=== PATIENT | male | born 1990 | race Caucasian/White ===

== ENCOUNTER 2016-06-02 11:37 | Inpatient (IN) | payer MEDICARE, OTHER, MEDICAID ==
[2016-06-02 12:17] LABS: Hematocrit 51 % (42-52); Hemoglobin 16.8 g/dl (14.0-18.0); Mean Corpuscular HGB Conc 33 g/dl (31-36); Mean Corpuscular Hemoglobin 28 pg (27-31); Mean Corpuscular Volume 86 fL (80-94); Mean Platelet Volume 9 um3 (7.4-10.4); Red Blood Count 5.96 10^6/ul (4.0-5.4); Red Cell Distribution Width 15 % (10.5-15); Urine Bilirubin Negative (Negative); Urine Glucose Negative (Negative); Urine Nitrite Negative (Negative); White Blood Count 12.5 10^3/ul (3.5-10.8)
[2016-06-02 12:26] LABS: ALT 32 U/L (7-52); AST 25 U/L (13-39); Albumin 4.8 g/dL (3.2-5.2); Alkaline Phosphatase 85 U/L (34-104); Anion Gap 9 mmol/L (2-11); BUN/Creatinine Ratio 11.6 (8-20); Blood Urea Nitrogen 13 mg/dL (6-24); CO2 Carbon Dioxide 29 mmol/L (22-32); Calcium 10.1 mg/dL (8.6-10.3); Chloride 99 mmol/L (101-111); EGFR African American 104.5 (>60); EGFR Non-African American 81.2 (>60); Globulin 3.3 g/dL (2-4); Glucose 96 mg/dL (70-100); Potassium 3.8 mmol/L (3.5-5.0); Sodium 137 mmol/L (133-145); Total Protein 8.1 g/dL (6.4-8.9)
[2016-06-02 12:27] LABS: Benzodiazepine Urine Screen None Detected (None Detect)
[2016-06-02] MEDS ORDERED: LORazepam TAB(*) 1 MG PO ONE (12:51)
[2016-06-02 12:53] LABS: Acetaminophen < 15 mcg/mL; Alcohol < 10 mg/dL (<10); Salicylate < 2.50 mg/dL (<30)
[2016-06-02 13:01] LABS: TSH (Thyroid Stimulating Horm) 1.05 mcIU/mL (0.34-5.60)
[2016-06-02] MEDS ORDERED: Al Hydrox/Mg Hydrox/Simet LIQ* 30 ML UDC PO PRN (13:55)
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
[2016-06-02] MEDS: Haloperidol TAB* 5 MG PO PRN (17:19)
[2016-06-02] MEDS: OLANzapine TAB* 10 MG PO SCH (20:31)
[2016-06-02] MEDS: cloNIDine TAB* 0.1 MG PO SCH (20:31)
[2016-06-03] MEDS: cloNIDine TAB* 0.1 MG PO SCH ×2 (08:21→21:36)
[2016-06-03] MEDS: Vitamin THERAPEUTIC TAB PO SCH (08:21)
[2016-06-03] MEDS: PARoxetine HCL TAB* 20 MG PO SCH (08:21)
[2016-06-03] MEDS: LORazepam TAB(*) 1 MG PO PRN (10:10)
--- NOTE | 2016-06-03 11:31 | PN ---
MHU: Group Therapy Note - Service Type Service Type: 84777 Group Psychotherapy - Cognitive Behavioral Group Therapy ( CBT):Patient was attentive and participatory in CBT programming this morning, and remained in good behavioral control. Patient expressed positive insights regarding relevant treatment interventions and goals. Manolo initially presented as somewhat agitated, but responded to group discussion positively and was attentive to peer and staff conversation.
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
[2016-06-03] MEDS: OLANzapine TAB* 10 MG PO SCH (21:36)
[2016-06-04] MEDS: cloNIDine TAB* 0.1 MG PO SCH ×2 (09:05→20:07)
[2016-06-04] MEDS: PARoxetine HCL TAB* 20 MG PO SCH (09:05)
[2016-06-04] MEDS: Vitamin THERAPEUTIC TAB PO SCH (09:05)
[2016-06-04] MEDS: Haloperidol TAB* 5 MG PO PRN (09:36)
[2016-06-04] MEDS: LORazepam TAB(*) 1 MG PO PRN (09:37)
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
[2016-06-04] MEDS: OLANzapine TAB* 10 MG PO SCH (20:07)
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
[2016-06-05] MEDS: cloNIDine TAB* 0.1 MG PO SCH ×2 (08:36→20:24)
[2016-06-05] MEDS: PARoxetine HCL TAB* 20 MG PO SCH (08:37)
[2016-06-05] MEDS: Vitamin THERAPEUTIC TAB PO SCH (08:37)
[2016-06-05] MEDS: Haloperidol TAB* 5 MG PO PRN ×2 (09:52→19:05)
[2016-06-05] MEDS: LORazepam TAB(*) 1 MG PO PRN ×2 (09:52→19:05)
--- NOTE | 2016-06-05 12:02 | PN ---
MHU: Group Therapy Note - Service Type Service Type: [id number] Group Psychotherapy - Cognitive Behavioral Group Therapy ( CBT):Patient attended CBT programming this morning and presented with flat affect that did not vary with discussion. Although responsive to direct prompts to respond to questions, patient did not engage in spontaneous conversation.
[2016-06-05] MEDS: OLANzapine TAB* 10 MG PO SCH (20:24)
[2016-06-06] MEDS: PARoxetine HCL TAB* 20 MG PO SCH (09:44)
[2016-06-06] MEDS: Vitamin THERAPEUTIC TAB PO SCH (09:44)
[2016-06-06] MEDS: cloNIDine TAB* 0.1 MG PO SCH ×2 (09:44→20:12)
[2016-06-06] MEDS: LORazepam TAB(*) 1 MG PO PRN (10:51)
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
[2016-06-06] MEDS ORDERED: Ziprasidone * 20 MG CAP (generic Geodon) PO ONE (11:14)
[2016-06-06] MEDS: Ziprasidone * 20 MG CAP (generic Geodon) PO SCH ×3 (11:15→20:14)
[2016-06-06] MEDS: OLANzapine TAB* 10 MG PO SCH (20:13)
[2016-06-07] MEDS: PARoxetine HCL TAB* 20 MG PO SCH (08:24)
[2016-06-07] MEDS: Vitamin THERAPEUTIC TAB PO SCH (08:24)
[2016-06-07] MEDS: cloNIDine TAB* 0.1 MG PO SCH ×2 (08:24→19:56)
[2016-06-07] MEDS: Ziprasidone * 20 MG CAP (generic Geodon) PO SCH ×2 (08:25→19:59)
[2016-06-07] MEDS ORDERED: diPHENhydraMINE PO* 50 MG PO PRN (10:55)
[2016-06-07] MEDS: LORazepam TAB(*) 1 MG PO PRN (10:58)
[2016-06-07] MEDS ORDERED: diPHENhydraMINE PO* 50 MG ONE (11:02)
[2016-06-07] MEDS ORDERED: Influenza VAC *QUAD* 2016-17* 0.5 ML SYRINGE IM ONE (15:00)
[2016-06-07] MEDS: OLANzapine TAB* 10 MG PO SCH (19:56)
[2016-06-08] MEDS: cloNIDine TAB* 0.1 MG PO SCH ×2 (08:06→20:00)
[2016-06-08] MEDS: Ziprasidone * 20 MG CAP (generic Geodon) PO SCH ×2 (08:06→20:00)
[2016-06-08] MEDS: PARoxetine HCL TAB* 20 MG PO SCH (08:07)
[2016-06-08] MEDS: Vitamin THERAPEUTIC TAB PO SCH (08:07)
--- NOTE | 2016-06-08 12:24 | PN ---
Subjective - Subjective Service Type: 43639 Hosp care 15 min low complexity Subjective: Pawel reports full remission of psychotic symptoms today with 'content' mood and no other psychiatric or medical complaints. He had complained over the weekend of some dystonia after starting Geodon, but denies any today. He requests time in the comfort room. Noted to be withdrawn and tearful for unknown reason in group today. Objective - Appearance Appearance: Healthy Appearing Dysmorphic Features: No Hygiene: Normal Grooming: Well Kept - Behavior Psychomotor Activities: Normal Exhibits Abnormal Movement: No - Attitude and Relatedness Attitude and Relatedness: Cooperative Eye Contact: Fair - Speech Quality: Unpressured Latencies: Normal Quantity: Appropriate - Mood Patient's Decription of Mood: "Content" - Affect Observed Affect: Fair Affect Consistent with: Euthymia - Thought Process Patient's Thought Process: Coherent, Goal Directed Thought Content: No Passive Wish, No Suicidal Planning, No Homicidal Ideation, No Paranoid Ideation - Sensorium Experiencing Hallucinations: No, Sensorium is Clear Type of Hallucinations: Visual: No, Auditory: No, Command: No - Level of Consciousness Level of Consciousness: Alert Orientation: Yes Intact, Yes Orientated to Time, Yes Orientated to Place, Yes Orientated to Person - Impulse Control Impulse Control: Intact - Insight and Judgement Insight and Judgement: Poor - Group Participation Particating in Group Activities: Yes - Medication Management Medication Management Adherence: Yes Assessment - Assessment Merits Inpatient Hospitalization: For Stabilization, For Ongoing Evaluation, For Discharge Planning, Pending Safe DC Plan Inpatient DSM-IV Dx: Schizophrenia Clinical Impression: Mr. Galvez is being re-admitted to the unit due to recurrence of psychosis similar to what prompted his admission on 05/01/2016. He reports that he has been compliant with medications. We will be gathering collateral reports, particularly from his father and from the [facility] once we document his permission through signed HIPAA releases. We will be encouraging him to make use of the therapeutic milieu and groups, and in fact I did interview him on the day of admission after asking him to exit a group to do so. We will be monitoring his mental status and safety. We will continue for now the Zyprexa that he has been on, but will be discussing with him the possibility of a medication change, perhaps to Clozaril, which may be more effective against psychosis. Aftercare will most likely be return to care at the [facility]. 06.04.16 Pawel remains paranoid and delusional, but cooperative and able to tolerate hearing objective assessment of his status as psychotic with delusions. He is open to the possibility of a medication change to either a long-acting injectable like Invega Sustenna, or Clozaril. We reviewed potential side-effects of Clozaril, including but not limited to bone marrow suppression, sialorrhea, fatigue, and enuresis. 06.05.16 Remains disorganized, paranoid, delusional, pacing. Med and group compliant. Has not yet given decision re starting Clozaril. No return call yesterday from Dr Cook. 06.06.16 Pawel wants to switch to Geodon, which he says has worked well for him in the past, from Zyprexa. He does not want to start Clozaril at this time. He gives equivocal report of active SI on the unit, and expresses feeling terrible at being readmitted for psychiatric care. He reports some improvement of HI/PI, but I am uncertain of the reliability of this report today. 06.08.16 Pawel reports good response to Geodon today, with reported remission of psychotic symptoms, but I am unsure of the reliability of this report, as this is a remarkably rapid recovery. Will continue Geodon and continue to monitor. Plan - Plan Treatment Plan: Name: PAWEL GALVEZ Birthdate: 1990 [id number] Continue Paxil 20 mg daily, Geodon 80 mg bid. Monitor MS and safety, with focus on objective signs of remission of psychosis, ie increased engagement socially, decreased signs of possible response to internal stimuli, smoother flow of logical thought. Encourage groups and milieu. Medications: Current Medications Acetaminophen (Tylenol Tab*) 650 mg PO Q4H PRN PRN Reason: for pain; or Temp >101 F Al Hydrox/Mg Hydrox/Simethicone (Maalox Plus*) 30 ml PO Q4H PRN PRN Reason: INDIGESTION Clonidine HCl (Catapres Tab*) 0.1 mg PO BID [facility] Last Admin: 06/08/16 08:06 Dose: 0.1 mg Diphenhydramine HCl (Benadryl Po*) 50 mg PO Q4H PRN PRN Reason: DISCOMFORT Haloperidol (Haldol Tab*) 5 mg PO Q6H PRN PRN Reason: AGITATION/ANXIETY/INSOMNIA Last Admin: 06/05/16 19:05 Dose: 5 mg Lorazepam (Ativan Tab(*)) 2 mg PO Q6H PRN PRN Reason: AGITATION/ANXIETY/INSOMNIA Last Admin: 06/07/16 10:58 Dose: 2 mg Multivitamins (Theragran Tab*) 1 tab PO DAILY [facility] Last Admin: 06/08/16 08:07 Dose: 1 tab Olanzapine (Zyprexa Tab*) 10 mg PO BEDTIME [facility] Last Admin: 06/07/16 19:56 Dose: 10 mg Paroxetine HCl (Paxil Tab*) 20 mg PO DAILY [facility] Last Admin: 06/08/16 08:07 Dose: 20 mg Ziprasidone (Geodon (Generic) *) 80 mg PO BID [facility] Last Admin: 06/08/16 08:06 Dose: 80 mg - Discharge Plan Discharge Plan: Outpatient Follow Up Outpatient Program: [facility]
[2016-06-08] MEDS: OLANzapine TAB* 10 MG PO SCH (20:00)
[2016-06-09] MEDS: PARoxetine HCL TAB* 20 MG PO SCH (08:24)
[2016-06-09] MEDS: Ziprasidone * 20 MG CAP (generic Geodon) PO SCH ×2 (08:25→20:12)
[2016-06-09] MEDS: cloNIDine TAB* 0.1 MG PO SCH ×2 (08:25→20:11)
[2016-06-09] MEDS: Vitamin THERAPEUTIC TAB PO SCH (08:25)
--- NOTE | 2016-06-09 11:49 | PN ---
MHU: Group Therapy Note - Service Type Service Type: 75649 Group Psychotherapy - Cognitive Behavioral Group Therapy ( CBT):Patient was attentive and participatory in CBT programming this morning, and remained in good behavioral control. Patient expressed positive insights regarding relevant treatment interventions and goals.
[2016-06-09 14:24] LABS: BUN/Creatinine Ratio 13.2 (8-20); Calcium 9.4 mg/dL (8.6-10.3); EGFR African American 95.6 (>60); EGFR Non-African American 74.3 (>60); Potassium 3.7 mmol/L (3.5-5.0)
[2016-06-09 17:04] LABS: Hematocrit 45 % (42-52); Hemoglobin 14.7 g/dl (14.0-18.0); Mean Corpuscular HGB Conc 33 g/dl (31-36); Mean Corpuscular Hemoglobin 28 pg (27-31); Mean Corpuscular Volume 86 fL (80-94); Mean Platelet Volume 9 um3 (7.4-10.4); Red Blood Count 5.22 10^6/ul (4.0-5.4); Red Cell Distribution Width 15 % (10.5-15); White Blood Count 10.3 10^3/ul (3.5-10.8)
[2016-06-09] MEDS: OLANzapine TAB* 10 MG PO SCH (20:11)
[2016-06-10] MEDS: Ziprasidone * 20 MG CAP (generic Geodon) PO SCH ×2 (08:10→20:16)
[2016-06-10] MEDS: cloNIDine TAB* 0.1 MG PO SCH ×2 (08:11→20:15)
[2016-06-10] MEDS: Vitamin THERAPEUTIC TAB PO SCH (08:11)
[2016-06-10] MEDS: PARoxetine HCL TAB* 20 MG PO SCH (08:11)
--- NOTE | 2016-06-10 13:09 | PN ---
MHU: Group Therapy Note - Service Type Service Type: [id number] Group Psychotherapy - Cognitive Behavioral Group Therapy ( CBT):Patient was attentive and participatory in CBT programming this morning, and remained in good behavioral control. Patient expressed positive insights regarding relevant treatment interventions and goals.
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
[2016-06-10] MEDS ORDERED: CloZAPine TAB* 25 MG TAB PO SCH (15:00)
[2016-06-10] MEDS: Acetaminophen TAB* 325 MG PO PRN (15:49)
[2016-06-10] MEDS ORDERED: guaiFENesin LIQ* 100 MG/5 ML UDC PO PRN (16:00)
[2016-06-10] MEDS: CloZAPine TAB* 25 MG TAB PO SCH (20:15)
[2016-06-10] MEDS: OLANzapine TAB* 10 MG PO SCH (20:16)
[2016-06-11] MEDS: Vitamin THERAPEUTIC TAB PO SCH (08:25)
[2016-06-11] MEDS: PARoxetine HCL TAB* 20 MG PO SCH (08:25)
[2016-06-11] MEDS: cloNIDine TAB* 0.1 MG PO SCH ×2 (08:25→20:24)
[2016-06-11] MEDS: Ziprasidone * 20 MG CAP (generic Geodon) PO SCH ×2 (08:26→20:24)
[2016-06-11] MEDS: CloZAPine TAB* 25 MG TAB PO SCH (20:24)
[2016-06-11] MEDS: OLANzapine TAB* 10 MG PO SCH (20:24)
[2016-06-12] MEDS: cloNIDine TAB* 0.1 MG PO SCH ×2 (07:48→20:01)
[2016-06-12] MEDS: Vitamin THERAPEUTIC TAB PO SCH (07:48)
[2016-06-12] MEDS: PARoxetine HCL TAB* 20 MG PO SCH (07:48)
[2016-06-12] MEDS: Ziprasidone * 20 MG CAP (generic Geodon) PO SCH ×2 (07:48→20:01)
--- NOTE | 2016-06-12 09:11 | PN ---
Subjective - Subjective Service Type: 04424 Hosp care 15 min low complexity Subjective: Pawel reports he is still having difficulties with URI, but is feeling a little better. He says he is free of psychosis with 'tired' mood. Objective - Appearance Appearance: Well Developed/Nourished Dysmorphic Features: No Hygiene: Normal Grooming: Disheveled - Behavior Psychomotor Activities: Normal Exhibits Abnormal Movement: No - Attitude and Relatedness Attitude and Relatedness: Cooperative Eye Contact: Good - Speech Quality: Unpressured Latencies: Normal Quantity: Appropriate - Mood Patient's Decription of Mood: "Tired" - Affect Observed Affect: Depressed Affect Consistent with: Dysphoria - Thought Process Patient's Thought Process: Coherent, Goal Directed Thought Content: No Passive Wish, No Suicidal Planning, No Homicidal Ideation, No Paranoid Ideation - Sensorium Experiencing Hallucinations: No, Sensorium is Clear Type of Hallucinations: Visual: No, Auditory: No, Command: No - Level of Consciousness Level of Consciousness: Alert Orientation: Yes Intact, Yes Orientated to Time, Yes Orientated to Place, Yes Orientated to Person - Impulse Control Impulse Control: Intact - Insight and Judgement Insight and Judgement: Poor - Group Participation Particating in Group Activities: Yes - Medication Management Medication Management Adherence: Yes Assessment - Assessment Merits Inpatient Hospitalization: For Immediate Safety, For Stabilization, For Discharge Planning Inpatient DSM-IV Dx: Schizophrenia Clinical Impression: Mr. Galvez is being re-admitted to the unit due to recurrence of psychosis similar to what prompted his admission on 05/01/2016. He reports that he has been compliant with medications. We will be gathering collateral reports, particularly from his father and from the [facility] once we document his permission through signed HIPAA releases. We will be encouraging him to make use of the therapeutic milieu and groups, and in fact I did interview him on the day of admission after asking him to exit a group to do so. We will be monitoring his mental status and safety. We will continue for now the Zyprexa that he has been on, but will be discussing with him the possibility of a medication change, perhaps to Clozaril, which may be more effective against psychosis. Aftercare will most likely be return to care at the [facility]. 06.04.16 Pawel remains paranoid and delusional, but cooperative and able to tolerate hearing objective assessment of his status as psychotic with delusions. He is open to the possibility of a medication change to either a long-acting injectable like Invega Sustenna, or Clozaril. We reviewed potential side-effects of Clozaril, including but not limited to bone marrow suppression, sialorrhea, fatigue, and enuresis. 2.10.17 Remains disorganized, paranoid, delusional, pacing. Med and group compliant. Has not yet given decision re starting Clozaril. No return call yesterday from Dr Cook. 2.17 Pawel wants to switch to Geodon, which he says has worked well for him in the past, from Zyprexa. He does not want to start Clozaril at this time. He gives equivocal report of active SI on the unit, and expresses feeling terrible at being readmitted for psychiatric care. He reports some improvement of HI/PI, but I am uncertain of the reliability of this report today. 2.17 Pawel reports good response to Geodon today, with reported remission of psychotic symptoms, but I am unsure of the reliability of this report, as this is a remarkably rapid recovery. Will continue Geodon and continue to monitor. 2.15.17 At yesterday's family meeting, Pawel agreed to a trial of Clozaril, having voiced understanding of potential side effects including but not limited to bone marrow suppression, sialorrhea, sedation, weight gain, increased risk of onset of type 2 diabetes, and requirement for weekly blood draws to check ANC. He remains paranoid, delusional, disheveled, pacing, marginally engaged. 2..17 Pawel reports tired mood in context of URI. Also reports remission of psychotic symptoms. Med, meal, group compliant. Plan - Plan Treatment Plan: Name: PAWEL GALVEZ Birthdate: 1990 [id number] Continue Paxil 20 mg daily. Replace Geodon with Clozaril on cross-taper schedule over next week. Monitor MS and safety, with focus on objective signs of remission of psychosis, ie increased engagement socially, decreased signs of possible response to internal stimuli, smoother flow of logical thought. Encourage groups and milieu. Continued Medication Management: Different Medication Medications: Current Medications Acetaminophen (Tylenol Tab*) 650 mg PO Q4H PRN PRN Reason: for pain; or Temp >101 F Last Admin: 06/10/16 15:49 Dose: 650 mg Al Hydrox/Mg Hydrox/Simethicone (Maalox Plus*) 30 ml PO Q4H PRN PRN Reason: INDIGESTION Clonidine HCl (Catapres Tab*) 0.1 mg PO BID [facility] Last Admin: 06/12/16 07:48 Dose: 0.1 mg Clozapine (Clozapine Tab*) 12.5 mg PO BEDTIME [facility] Last Admin: 06/11/16 20:24 Dose: 12.5 mg Diphenhydramine HCl (Benadryl Po*) 50 mg PO Q4H PRN PRN Reason: DISCOMFORT Guaifenesin (Robitussin*) 5 ml PO Q4H PRN PRN Reason: COUGH Last Admin: 06/10/16 16:21 Dose: 5 ml Haloperidol (Haldol Tab*) 5 mg PO Q6H PRN PRN Reason: AGITATION/ANXIETY/INSOMNIA Last Admin: 06/05/16 19:05 Dose: 5 mg Lorazepam (Ativan Tab(*)) 2 mg PO Q6H PRN PRN Reason: AGITATION/ANXIETY/INSOMNIA Last Admin: 06/07/16 10:58 Dose: 2 mg Multivitamins (Theragran Tab*) 1 tab PO DAILY [facility] Last Admin: 06/12/16 07:48 Dose: 1 tab Olanzapine (Zyprexa Tab*) 10 mg PO BEDTIME [facility] Last Admin: 06/11/16 20:24 Dose: 10 mg Paroxetine HCl (Paxil Tab*) 20 mg PO DAILY [facility] Last Admin: 06/12/16 07:48 Dose: 20 mg Ziprasidone (Geodon (Generic) *) 80 mg PO BID [facility] Last Admin: 06/12/16 07:48 Dose: 80 mg - Discharge Plan Discharge Plan: Outpatient Follow Up Outpatient Program: [facility]
[2016-06-12] MEDS: CloZAPine TAB* 25 MG TAB PO SCH (20:03)
[2016-06-13] MEDS: CloZAPine TAB* 25 MG TAB PO SCH ×2 (08:02→20:04)
[2016-06-13] MEDS: Ziprasidone * 20 MG CAP (generic Geodon) PO SCH ×2 (08:02→20:05)
[2016-06-13] MEDS: cloNIDine TAB* 0.1 MG PO SCH ×2 (08:02→20:04)
[2016-06-13] MEDS: Vitamin THERAPEUTIC TAB PO SCH (08:02)
[2016-06-13] MEDS: PARoxetine HCL TAB* 20 MG PO SCH (08:02)
[2016-06-14] MEDS: PARoxetine HCL TAB* 20 MG PO SCH (08:05)
[2016-06-14] MEDS: CloZAPine TAB* 25 MG TAB PO SCH ×2 (08:05→20:04)
[2016-06-14] MEDS: cloNIDine TAB* 0.1 MG PO SCH ×2 (08:05→20:04)
[2016-06-14] MEDS: Vitamin THERAPEUTIC TAB PO SCH (08:05)
[2016-06-14] MEDS: Ziprasidone * 20 MG CAP (generic Geodon) PO SCH ×2 (08:06→20:04)
[2016-06-14] MEDS: Acetaminophen TAB* 325 MG PO PRN (08:48)
--- NOTE | 2016-06-14 19:41 | PN ---
Progress Note - Progress Note Note: Patient told there are two patients on the unit (did not disclose their names) who have tested positive for Influenza A and I am recommending taking Tamiflu as a prophylactic measure. I made it clear this was optional. She agreed to the treatment after hearing of the indications, risks, benefits and alternatives.
[2016-06-15] MEDS: Oseltamivir CAP* 75 MG PO SCH (07:32)
[2016-06-15] MEDS: CloZAPine TAB* 25 MG TAB PO SCH ×2 (07:32→20:01)
[2016-06-15] MEDS: Vitamin THERAPEUTIC TAB PO SCH (07:32)
[2016-06-15] MEDS: cloNIDine TAB* 0.1 MG PO SCH ×2 (07:32→20:00)
[2016-06-15] MEDS: PARoxetine HCL TAB* 20 MG PO SCH (07:32)
[2016-06-15] MEDS: Ziprasidone * 20 MG CAP (generic Geodon) PO SCH ×2 (07:33→19:59)
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
[2016-06-16 08:00] LABS: Hematocrit 47 % (42-52); Hemoglobin 15.2 g/dl (14.0-18.0); Mean Corpuscular HGB Conc 33 g/dl (31-36); Mean Corpuscular Hemoglobin 28 pg (27-31); Mean Corpuscular Volume 87 fL (80-94); Mean Platelet Volume 9 um3 (7.4-10.4); Red Blood Count 5.38 10^6/ul (4.0-5.4); Red Cell Distribution Width 15 % (10.5-15); White Blood Count 10.9 10^3/ul (3.5-10.8)
[2016-06-16] MEDS: Vitamin THERAPEUTIC TAB PO SCH (10:04)
[2016-06-16] MEDS: Oseltamivir CAP* 75 MG PO SCH (10:04)
[2016-06-16] MEDS: cloNIDine TAB* 0.1 MG PO SCH ×2 (10:04→20:48)
[2016-06-16] MEDS: Ziprasidone * 20 MG CAP (generic Geodon) PO SCH ×2 (10:04→20:48)
[2016-06-16] MEDS: PARoxetine HCL TAB* 20 MG PO SCH (10:05)
[2016-06-16] MEDS: CloZAPine TAB* 25 MG TAB PO SCH ×2 (10:05→20:47)
--- NOTE | 2016-06-16 11:09 | PN ---
MHU: Group Therapy Note - Service Type Service Type: 84415 Group Psychotherapy - Cognitive Behavioral Group Therapy ( CBT):Patient was attentive and participatory in CBT programming this morning, and remained in good behavioral control. Patient expressed positive insights regarding relevant treatment interventions and goals.
[2016-06-17] MEDS: CloZAPine TAB* 25 MG TAB PO SCH ×2 (08:03→20:03)
[2016-06-17] MEDS: Oseltamivir CAP* 75 MG PO SCH (08:04)
[2016-06-17] MEDS: cloNIDine TAB* 0.1 MG PO SCH ×2 (08:04→20:03)
[2016-06-17] MEDS: Ziprasidone * 20 MG CAP (generic Geodon) PO SCH ×2 (08:04→20:02)
[2016-06-17] MEDS: Vitamin THERAPEUTIC TAB PO SCH (08:04)
[2016-06-17] MEDS: PARoxetine HCL TAB* 20 MG PO SCH (08:05)
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
[2016-06-18] MEDS: Vitamin THERAPEUTIC TAB PO SCH (07:58)
[2016-06-18] MEDS: Oseltamivir CAP* 75 MG PO SCH (07:58)
[2016-06-18] MEDS: cloNIDine TAB* 0.1 MG PO SCH ×2 (07:58→20:02)
[2016-06-18] MEDS: CloZAPine TAB* 25 MG TAB PO SCH ×2 (07:58→20:02)
[2016-06-18] MEDS: Ziprasidone * 20 MG CAP (generic Geodon) PO SCH ×2 (07:59→20:02)
[2016-06-18] MEDS: PARoxetine HCL TAB* 20 MG PO SCH (08:00)
[2016-06-19] MEDS: CloZAPine TAB* 25 MG TAB PO SCH ×2 (08:14→20:02)
[2016-06-19] MEDS: cloNIDine TAB* 0.1 MG PO SCH ×2 (08:14→20:02)
[2016-06-19] MEDS: Ziprasidone * 20 MG CAP (generic Geodon) PO SCH ×2 (08:15→20:02)
[2016-06-19] MEDS: PARoxetine HCL TAB* 20 MG PO SCH (08:16)
[2016-06-19] MEDS: Vitamin THERAPEUTIC TAB PO SCH (08:16)
[2016-06-19] MEDS: Oseltamivir CAP* 75 MG PO SCH (08:16)
--- NOTE | 2016-06-19 16:44 | PN ---
Subjective - Subjective Service Type: 90127 Hosp care 15 min low complexity Subjective: Pawel reports he has had full remission of any dangerous intent or plan and any psychotic symptoms. He is asking for discharge. He is pleasant and collaborative. Objective - Appearance Appearance: Healthy Appearing Dysmorphic Features: No Hygiene: Normal Grooming: Fairly Well Kept - Behavior Psychomotor Activities: Normal Exhibits Abnormal Movement: No - Attitude and Relatedness Attitude and Relatedness: Cooperative Eye Contact: Fair - Speech Quality: Unpressured Latencies: Normal Quantity: Appropriate - Mood Patient's Decription of Mood: "Better" - Affect Observed Affect: Fair Affect Consistent with: Euthymia - Thought Process Patient's Thought Process: Coherent, Goal Directed Thought Content: No Passive Wish, No Suicidal Planning, No Homicidal Ideation, No Paranoid Ideation - Sensorium Experiencing Hallucinations: No, Sensorium is Clear Type of Hallucinations: Visual: No, Auditory: No, Command: No - Level of Consciousness Level of Consciousness: Alert Orientation: Yes Intact, Yes Orientated to Time, Yes Orientated to Place, Yes Orientated to Person - Impulse Control Impulse Control: Intact - Insight and Judgement Insight and Judgement: Fair - Group Participation Particating in Group Activities: Yes - Medication Management Medication Management Adherence: Yes Assessment - Assessment Merits Inpatient Hospitalization: Consolidate Improvements, For Discharge Planning Inpatient DSM-IV Dx: Schizophrenia Clinical Impression: Mr. Galvez is being re-admitted to the unit due to recurrence of psychosis similar to what prompted his admission on 05/01/2016. He reports that he has been compliant with medications. We will be gathering collateral reports, particularly from his father and from the [facility] once we document his permission through signed HIPAA releases. We will be encouraging him to make use of the therapeutic milieu and groups, and in fact I did interview him on the day of admission after asking him to exit a group to do so. We will be monitoring his mental status and safety. We will continue for now the Zyprexa that he has been on, but will be discussing with him the possibility of a medication change, perhaps to Clozaril, which may be more effective against psychosis. Aftercare will most likely be return to care at the [facility]. 06.04.16 Pawel remains paranoid and delusional, but cooperative and able to tolerate hearing objective assessment of his status as psychotic with delusions. He is open to the possibility of a medication change to either a long-acting injectable like Invega Sustenna, or Clozaril. We reviewed potential side-effects of Clozaril, including but not limited to bone marrow suppression, sialorrhea, fatigue, and enuresis. 2.10.17 Remains disorganized, paranoid, delusional, pacing. Med and group compliant. Has not yet given decision re starting Clozaril. No return call yesterday from Dr Cook. 2.11.17 Pawel wants to switch to Geodon, which he says has worked well for him in the past, from Zyprexa. He does not want to start Clozaril at this time. He gives equivocal report of active SI on the unit, and expresses feeling terrible at being readmitted for psychiatric care. He reports some improvement of HI/PI, but I am uncertain of the reliability of this report today. 2.13.17 Pawel reports good response to Geodon today, with reported remission of psychotic symptoms, but I am unsure of the reliability of this report, as this is a remarkably rapid recovery. Will continue Geodon and continue to monitor. 2.15.17 At yesterday's family meeting, Pawel agreed to a trial of Clozaril, having voiced understanding of potential side effects including but not limited to bone marrow suppression, sialorrhea, sedation, weight gain, increased risk of onset of type 2 diabetes, and requirement for weekly blood draws to check ANC. He remains paranoid, delusional, disheveled, pacing, marginally engaged. 2.17.17 Pawel reports tired mood in context of URI. Also reports remission of psychotic symptoms. Med, meal, group compliant. 2.22.17 Pawel reports improved mood and insight into prior psychotic state, which he says is resolving or resolved. 2.24.17 Pawel is markedly improved and should be ready for discharge early next week. Plan - Plan Treatment Plan: Name: PAWEL GALVEZ Birthdate: 1990 [id number] Continue Paxil 20 mg daily. Continue Clozaril increments over next week targeting 200+ mg dose. Monitor MS and safety, with focus on objective signs of remission of psychosis, ie increased engagement socially, decreased signs of possible response to internal stimuli, smoother flow of logical thought. Encourage groups and milieu. Medications: Current Medications Acetaminophen (Tylenol Tab*) 650 mg PO Q4H PRN PRN Reason: for pain; or Temp >101 F Last Admin: 06/14/16 08:48 Dose: 650 mg Al Hydrox/Mg Hydrox/Simethicone (Maalox Plus*) 30 ml PO Q4H PRN PRN Reason: INDIGESTION Clonidine HCl (Catapres Tab*) 0.1 mg PO BID [facility] Last Admin: 06/19/16 08:14 Dose: 0.1 mg Diphenhydramine HCl (Benadryl Po*) 50 mg PO Q4H PRN PRN Reason: DISCOMFORT Guaifenesin (Robitussin*) 5 ml PO Q4H PRN PRN Reason: COUGH Last Admin: 06/10/16 16:21 Dose: 5 ml Haloperidol (Haldol Tab*) 5 mg PO Q6H PRN PRN Reason: AGITATION/ANXIETY/INSOMNIA Last Admin: 06/05/16 19:05 Dose: 5 mg Lorazepam (Ativan Tab(*)) 2 mg PO Q6H PRN PRN Reason: AGITATION/ANXIETY/INSOMNIA Last Admin: 06/07/16 10:58 Dose: 2 mg Multivitamins (Theragran Tab*) 1 tab PO DAILY [facility] Last Admin: 06/19/16 08:16 Dose: 1 tab Oseltamivir Phosphate (Tamiflu Cap*) 75 mg PO DAILY [facility] Stop: 06/24/16 09:01 Last Admin: 06/19/16 08:16 Dose: 75 mg Paroxetine HCl (Paxil Tab*) 20 mg PO DAILY [facility] Last Admin: 06/19/16 08:16 Dose: 20 mg Ziprasidone (Geodon (Generic) *) 80 mg PO BID [facility] PRN Reason: Taper Stop: 06/23/16 16:08 Last Admin: 06/19/16 08:15 Dose: 80 mg - Discharge Plan Discharge Plan: Outpatient Follow Up Outpatient Program: [facility]
[2016-06-20] MEDS: CloZAPine TAB* 25 MG TAB PO SCH ×2 (08:16→20:32)
[2016-06-20] MEDS: cloNIDine TAB* 0.1 MG PO SCH ×2 (08:17→20:32)
[2016-06-20] MEDS: Vitamin THERAPEUTIC TAB PO SCH (08:17)
[2016-06-20] MEDS: PARoxetine HCL TAB* 20 MG PO SCH (08:17)
[2016-06-20] MEDS: Ziprasidone * 20 MG CAP (generic Geodon) PO SCH ×2 (08:17→20:32)
[2016-06-20] MEDS: Oseltamivir CAP* 75 MG PO SCH (08:18)
[2016-06-21] MEDS: CloZAPine TAB* 25 MG TAB PO SCH ×2 (08:25→20:19)
[2016-06-21] MEDS: Vitamin THERAPEUTIC TAB PO SCH (08:25)
[2016-06-21] MEDS: PARoxetine HCL TAB* 20 MG PO SCH (08:26)
[2016-06-21] MEDS: cloNIDine TAB* 0.1 MG PO SCH ×2 (08:26→20:20)
[2016-06-21] MEDS: Ziprasidone * 20 MG CAP (generic Geodon) PO SCH ×2 (08:26→20:19)
[2016-06-22] MEDS: CloZAPine TAB* 25 MG TAB PO SCH ×2 (08:24→20:28)
[2016-06-22] MEDS: cloNIDine TAB* 0.1 MG PO SCH ×2 (08:24→20:28)
[2016-06-22] MEDS: Vitamin THERAPEUTIC TAB PO SCH (08:24)
[2016-06-22] MEDS: Ziprasidone * 20 MG CAP (generic Geodon) PO SCH ×2 (08:25→20:28)
[2016-06-22] MEDS: PARoxetine HCL TAB* 20 MG PO SCH (09:57)
--- NOTE | 2016-06-22 11:06 | PN ---
MHU: Group Therapy Note - Service Type Service Type: [id number] Group Psychotherapy - Cognitive Behavioral Group Therapy ( CBT):Patient was attentive and participatory in CBT programming this morning, and remained in good behavioral control. Patient expressed positive insights regarding relevant treatment interventions and goals.
--- NOTE | 2016-06-22 16:44 | PN ---
Subjective - Subjective Service Type: 77865 Hosp care 15 min low complexity Subjective: Pawel reports and shows clear signs of improved mental status. He can now comfortably hold mutual gaze. He says he has no psychotic experience, nor any dangerous intent or plan. He voices readiness for discharge home soon. He reports occasional dizziness and 'fuzzy' vision, attributed to Clozaril. Objective - Appearance Appearance: Healthy Appearing Dysmorphic Features: No Hygiene: Normal Grooming: Fairly Well Kept - Behavior Psychomotor Activities: Normal Exhibits Abnormal Movement: No - Attitude and Relatedness Attitude and Relatedness: Cooperative Eye Contact: Good - Speech Quality: Unpressured Latencies: Normal Quantity: Appropriate - Mood Patient's Decription of Mood: "Good" - Affect Observed Affect: Good Affect Consistent with: Euthymia - Thought Process Patient's Thought Process: Coherent, Goal Directed Thought Content: No Passive Wish, No Suicidal Planning, No Homicidal Ideation, No Paranoid Ideation - Sensorium Experiencing Hallucinations: No, Sensorium is Clear Type of Hallucinations: Visual: No, Auditory: No, Command: No - Level of Consciousness Level of Consciousness: Alert Orientation: Yes Intact, Yes Orientated to Time, Yes Orientated to Place, Yes Orientated to Person - Impulse Control Impulse Control: Intact - Insight and Judgement Insight and Judgement: Fair - Group Participation Particating in Group Activities: Yes - Medication Management Medication Management Adherence: Yes Assessment - Assessment Merits Inpatient Hospitalization: Consolidate Improvements, For Discharge Planning Inpatient DSM-IV Dx: Schizophrenia Clinical Impression: Mr. Galvez is being re-admitted to the unit due to recurrence of psychosis similar to what prompted his admission on 05/01/2016. He reports that he has been compliant with medications. We will be gathering collateral reports, particularly from his father and from the [facility] once we document his permission through signed HIPAA releases. We will be encouraging him to make use of the therapeutic milieu and groups, and in fact I did interview him on the day of admission after asking him to exit a group to do so. We will be monitoring his mental status and safety. We will continue for now the Zyprexa that he has been on, but will be discussing with him the possibility of a medication change, perhaps to Clozaril, which may be more effective against psychosis. Aftercare will most likely be return to care at the [facility]. 06.04.16 Pawel remains paranoid and delusional, but cooperative and able to tolerate hearing objective assessment of his status as psychotic with delusions. He is open to the possibility of a medication change to either a long-acting injectable like Invega Sustenna, or Clozaril. We reviewed potential side-effects of Clozaril, including but not limited to bone marrow suppression, sialorrhea, fatigue, and enuresis. 2.10.17 Remains disorganized, paranoid, delusional, pacing. Med and group compliant. Has not yet given decision re starting Clozaril. No return call yesterday from Dr Cook. 2.11.17 Pawel wants to switch to Geodon, which he says has worked well for him in the past, from Zyprexa. He does not want to start Clozaril at this time. He gives equivocal report of active SI on the unit, and expresses feeling terrible at being readmitted for psychiatric care. He reports some improvement of HI/PI, but I am uncertain of the reliability of this report today. 2.13.17 Pawel reports good response to Geodon today, with reported remission of psychotic symptoms, but I am unsure of the reliability of this report, as this is a remarkably rapid recovery. Will continue Geodon and continue to monitor. 2.15.17 At yesterday's family meeting, Pawel agreed to a trial of Clozaril, having voiced understanding of potential side effects including but not limited to bone marrow suppression, sialorrhea, sedation, weight gain, increased risk of onset of type 2 diabetes, and requirement for weekly blood draws to check ANC. He remains paranoid, delusional, disheveled, pacing, marginally engaged. 2.17.17 Pawel reports tired mood in context of URI. Also reports remission of psychotic symptoms. Med, meal, group compliant. 2..17 Pawel reports improved mood and insight into prior psychotic state, which he says is resolving or resolved. 2.24.17 Pawel is markedly improved and should be ready for discharge early next week. 2.27.17 Pawel continues to show signs and report remitted symptoms indicative of recovery from psychosis. We will be making plan for discharge to outpatient follow-up in the next few days. Plan - Plan Treatment Plan: Name: PAWEL GALVEZ Birthdate: 1990 [id number] Continue Paxil 20 mg daily. Continue Clozaril increments over next week targeting 200+ mg dose. Monitor MS and safety, with focus on objective signs of remission of psychosis, ie increased engagement socially, decreased signs of possible response to internal stimuli, smoother flow of logical thought. Encourage groups and milieu. Medications: Current Medications Acetaminophen (Tylenol Tab*) 650 mg PO Q4H PRN PRN Reason: for pain; or Temp >101 F Last Admin: 06/14/16 08:48 Dose: 650 mg Al Hydrox/Mg Hydrox/Simethicone (Maalox Plus*) 30 ml PO Q4H PRN PRN Reason: INDIGESTION Clonidine HCl (Catapres Tab*) 0.1 mg PO BID [facility] Last Admin: 06/22/16 08:24 Dose: 0.1 mg Clozapine (Clozapine Tab*) 75 mg PO BID [facility] Last Admin: 06/22/16 08:24 Dose: 75 mg Diphenhydramine HCl (Benadryl Po*) 50 mg PO Q4H PRN PRN Reason: DISCOMFORT Guaifenesin (Robitussin*) 5 ml PO Q4H PRN PRN Reason: COUGH Last Admin: 06/10/16 16:21 Dose: 5 ml Lorazepam (Ativan Tab(*)) 2 mg PO Q6H PRN PRN Reason: AGITATION/ANXIETY/INSOMNIA Last Admin: 06/07/16 10:58 Dose: 2 mg Multivitamins (Theragran Tab*) 1 tab PO DAILY [facility] Last Admin: 06/22/16 08:24 Dose: 1 tab Paroxetine HCl (Paxil Tab*) 20 mg PO DAILY [facility] Last Admin: 06/22/16 09:57 Dose: 20 mg Ziprasidone (Geodon (Generic) *) 20 mg PO BID [facility] Last Admin: 06/22/16 08:25 Dose: 20 mg - Discharge Plan Discharge Plan: Outpatient Follow Up Outpatient Program: [facility]
[2016-06-23 07:56] VITALS: BP 122/70
[2016-06-23] MEDS: cloNIDine TAB* 0.1 MG PO SCH (08:27)
[2016-06-23] MEDS: CloZAPine TAB* 25 MG TAB PO SCH (08:27)
[2016-06-23] MEDS: PARoxetine HCL TAB* 20 MG PO SCH (08:28)
[2016-06-23] MEDS: Vitamin THERAPEUTIC TAB PO SCH (08:28)
[2016-06-23] MEDS: Ziprasidone * 20 MG CAP (generic Geodon) PO SCH (08:28)
--- NOTE | 2016-06-23 12:38 | DS ---
Subjective - Subjective Service Types: 12162 [facility] Day Mgmt simple under 30 min Discharge Date: 06/23/16 Subjective: Manolo reports feeling safe and ready for discharge. He reports sustained remission of the delusions and paranoia he had been experiencing prior to admission. He continues to report no dangerous intent or plan to harm himself. He complains of dizziness sometimes when he stands up, and has a blister on his heel. Objective - Appearance Appearance: Healthy Appearing Dysmorphic Features: No Hygiene: Normal Grooming: Fairly Well Kept - Behavior Psychomotor Activities: Normal Exhibits Abnormal Movement: No - Attitude and Relatedness Attitude and Relatedness: Well Related Eye Contact: Good - Speech Quality: Unpressured Latencies: Normal Quantity: Appropriate - Mood Patient's Decription of Mood: "Good" - Affect Observed Affect: Good Affect Consistent with: Euthymia - Thought Process Patient's Thought Process: Coherent, Goal Directed Thought Content: No Passive Wish, No Suicidal Planning, No Homicidal Ideation, No Paranoid Ideation - Sensorium Experiencing Hallucinations: No, Sensorium is Clear Type of Hallucinations: Visual: No, Auditory: No, Command: No - Level of Consciousness Level of Consciousness: Alert Orientation: Yes Intact, Yes Orientated to Time, Yes Orientated to Place, Yes Orientated to Person - Impulse Control Impulse Control: Intact - Insight and Judgement Insight and Judgement: Fair - Group Participation Particating in Group Activities: Yes - Medication Management Medication Management Adherence: Yes Treatment Course & Assessment Clinical Course & Impression: Mr. Galvez was re-admitted to the unit due to recurrence of psychosis similar to what prompted his admission on 05/01/2016. He reported that he had been compliant with medications. 06.04.16 Manolo remains paranoid and delusional, but cooperative and able to tolerate hearing objective assessment of his status as psychotic with delusions. He is open to the possibility of a medication change to either a long-acting injectable like Invega Sustenna, or Clozaril. We reviewed potential side-effects of Clozaril, including but not limited to bone marrow suppression, sialorrhea, fatigue, and enuresis. 06.05.16 Remains disorganized, paranoid, delusional, pacing. Med and group compliant. Has not yet given decision re starting Clozaril. No return call yesterday from Dr Cook. 06.06.16 Manolo wants to switch to Geodon, which he says has worked well for him in the past, from Zyprexa. He does not want to start Clozaril at this time. He gives equivocal report of active SI on the unit, and expresses feeling terrible at being readmitted for psychiatric care. He reports some improvement of HI/PI, but I am uncertain of the reliability of this report today. 2.13.17 Manolo reports good response to Geodon today, with reported remission of psychotic symptoms, but I am unsure of the reliability of this report, as this is a remarkably rapid recovery. Will continue Geodon and continue to monitor. 2.15.17 At yesterday's family meeting, Manolo agreed to a trial of Clozaril, having voiced understanding of potential side effects including but not limited to bone marrow suppression, sialorrhea, sedation, weight gain, increased risk of onset of type 2 diabetes, and requirement for weekly blood draws to check ANC. He remains paranoid, delusional, disheveled, pacing, marginally engaged. 2.17.17 Manolo reports tired mood in context of URI. Also reports remission of psychotic symptoms. Med, meal, group compliant. 2.22.17 Manolo reports improved mood and insight into prior psychotic state, which he says is resolving or resolved. 2.24.17 Manolo is markedly improved and should be ready for discharge early next week. 2.27.17 Manolo continues to show signs and report remitted symptoms indicative of recovery from psychosis. We will be making plan for discharge to outpatient follow-up in the next few days. 2.28.17 Manolo is cleared for discharge today. He will continue taking Clozaril, which has been effective against psychosis with minimal side effects. He reports full sustained remission of psychotic symptoms, with good mood and no dangerous intent or plan. Staff have observed him functioning well on the unit, attending groups with good participation, pleasant and collaborative with patients and staff. His father has been visiting him regularly. He feels Manolo is much improved and ready to discharge home. Manolo will continue care at [facility]. We reviewed his case on treatment team today with [facility] [employer] Teagan Kam, who reports they are ready to take over his care. I left a voicemail with prescriber Ele Platt requesting a return call if she needs me to order CBCD for next Wednesday to continue the Clozaril. Merits Inpatient Hospitalization: No Clear for Discharge: Adequate Clinical Respons, Acceptable Safety Profile, Low Utility of Inpt Care Inpatient DSM-IV Dx: Schizophrenia - [place] III Medical Illness: None - [place] IV Family: Supportive father - [place] V [id number]: 62 Estimate of Highest-Past Year: 67 Discharge Planning - Discharge Planning Discharge Plan: Outpatient Follow Up Outpatient Program: [facility] Recommendations for Continuing Care: Medication Management, Psychotherapy Medications: Clonidine HCl (Catapres Tab*) 0.1 mg PO BID [facility] Last Admin: 06/23/16 08:27 Dose: 0.1 mg Clozapine (Clozapine Tab*) 75 mg PO BID [facility] Last Admin: 06/23/16 08:27 Dose: 75 mg : #14, 3 refills *Diphenhydramine HCl (Benadryl Po*) 50 mg PO Q4H PRN PRN Reason: DISCOMFORT : #60, 0 refills *Multivitamins (Theragran Tab*) 1 tab PO DAILY [facility] Last Admin: 06/23/16 08:28 Dose: 1 tab : #30, 0 refills Paroxetine HCl (Paxil Tab*) 20 mg PO DAILY [facility] Last Admin: 06/23/16 08:28 Dose: 20 mg Verbal prescription phoned into [facility] [employer] due to [employer] would not transmit escript * escripts sent in Others Manolo reports having in good supply at home. Discharge Planning: Prescriptions provided for discharge [x] Yes [] No Follow up care details as per social work arrangements. Patient response to discharge plan: [x] eager for discharge [x] agreeable with discharge plan [] ambivalent about discharge [] disagrees with discharge today
== END 2016-06-23 15:15 | disposition home or self-care (01) | DRG 750 ==
LOC: ED 11:37 → BSU 14:22
PROVIDERS: ADMIT Psychiatry & Neurology Psychiatry; ATTEND Psychiatry & Neurology Psychiatry
PROC: GZHZZZZ Group Psychotherapy (ICD-10-PCS; principal; 2016-06-02)
DX: F20.0 Paranoid schizophrenia (principal); E66.9 Obesity, unspecified; S90.829A Blister (nonthermal), unspecified foot, initial encounter; R42 Dizziness and giddiness; Z81.1 Family history of alcohol abuse and dependence; Z81.8 Family history of other mental and behavioral disorders; Z68.28 Body mass index [BMI] 28.0-28.9, adult; T42.4X5A Adverse effect of benzodiazepines, initial encounter; X58.XXXA Exposure to other specified factors, initial encounter
CPT/HCPCS: 36415; 80048; 80053; 80307; 80320; 80329; 81003; 84443; 85025; 90853; 99222; 99231; 99232; 99238; A9270-GY; G0480